=== PATIENT | female | born 1955 | race Caucasian/White ===

== ENCOUNTER 2019-05-18 07:30 | Emergency (ER) | payer MEDICARE, MEDICAID ==
--- NOTE | 2019-05-18 07:41 | ED ---
Abdominal Pain/Female - HPI Summary HPI Summary: Pt. is a 64 y.o female who presents to the ER for right flank pain that started acutely this morning. Patient states pain is intermittent without modifying factors. Denies fever, cough, chest pain, shortness of breath, dysuria, hematuria, vomiting, diarrhea. Past medical history of obesity, diabetes, hypertension, hypothyroidism. Symptoms are moderate in severity. No current modifying factors. Patient denies fall or injury. - History of Current Complaint Chief Complaint: EDFlankPain Stated Complaint: RIGHT ABD PAIN Time Seen by Provider: 05/18/19 07:38 Hx Obtained From: Patient Pain Intensity: 4 Allergies/Adverse Reactions: Allergies Allergy/AdvReac Type Severity Reaction Status Date / Time No Known Allergies Allergy Verified 05/18/19 07:36 Home Medications: Home Medications Acetaminophen [Arthritis Pain Relief] 1,300 mg PO BID 05/18/19 [History Confirmed 05/18/19] Indomethacin CAP* [Indocin CAP*] 50 mg PO TID PRN 05/18/19 [History Confirmed ] Levothyroxine TAB* [Synthroid TAB*] 75 mcg PO DAILY 05/18/19 [History Confirmed 05/18/19] Triamterene/HCTZ 37.5-25 MG* [Dyazide CAP*] 1 cap PO DAILY 05/18/19 [History Confirmed 05/18/19] glipiZIDE TAB* [Glucotrol TAB*] 5 mg PO QAM 05/18/19 [History Confirmed 05/18/19 ] metFORMIN* [Glucophage 1000 MG TAB *] 1,000 mg PO BID 05/18/19 [History Confirmed 05/18/19] PMH/Surg Hx/FS Hx/Imm Hx Previously Healthy: Yes Infectious Disease History: No Infectious Disease History: Denies: Traveled Outside the [place] in Last 30 Days - Family History Known Family History: Positive: Non-Contributory - Social History Occupation: Unemployed Lives: With Family Review of Systems Constitutional: Negative Negative: Fever, Chills Cardiovascular: Negative Negative: Palpitations, Chest Pain Respiratory: Negative Negative: Shortness Of Breath, Cough Positive: Abdominal Pain. Negative: Vomiting, Diarrhea Genitourinary: Negative Negative: dysuria, hematuria Skin: Negative Negative: Rash Neurological/Mental Status: Negative All Other Systems Reviewed And Are Negative: Yes Physical Exam Triage Information Reviewed: Yes Vital Signs On Initial Exam: Initial Vitals Temp Pulse Resp BP Pulse Ox 98.0 F 102 19 149/86 97 05/18/19 07:31 05/18/19 07:31 05/18/19 07:31 05/18/19 07:31 05/18/19 07:31 Vital Signs Reviewed: Yes Appearance: Positive: Well-Appearing - Patient sitting in bed in no acute distress. Skin: Positive: Warm, Dry Head/Face: Positive: Normal Head/Face Inspection Eyes: Positive: Normal, EOMI Neck: Positive: Supple Respiratory/Lung Sounds: Positive: Clear to Auscultation, Breath Sounds Present Cardiovascular: Positive: Normal, RRR Abdomen Description: Positive: Other: - Obese. Abdomen is soft with tenderness to the right lower quadrant and right upper quadrant. No CVA tenderness. Neurological: Positive: Normal, CN Intact II-III Psychiatric: Positive: Affect/Mood Appropriate Procedures - Sedation Patient Received Moderate/Deep Sedation with Procedure: No Diagnostics - Vital Signs Vital Signs Temp Pulse Resp BP Pulse Ox 05/18/19 07:31 98.0 F 102 19 149/86 97 - Laboratory Result Diagrams: 05/18/19 07:57 05/18/19 07:57 Lab Statement: Any lab studies that have been ordered have been reviewed, and results considered in the medical decision making process. Abdominal Pain Fem Course/Dx - Course Course Of Treatment: Patient with acute onset right flank/abd. pain. She is afebrile. Mildly tachycardic. Denies pain medication and pain is minimal at this point. IV fluids started, labs and CT scan ordered. ECG done at 0756 shows a sinus tachycardia of 102 bpm, normal axis, LVH, no STEMI. Left shoulder leukocytosis of 14,000, hyperglycemia mild hyperglycemia were, minimally elevated CRP. Urinalysis negative for infection. CT scan shows large amount of stool without acute findings per radiology. Chest x-ray ordered given leukocytosis and is negative for acute findings per radiology. Unclear of pain leukocytosis etiology. Suspect pain secondary to constipation. On reexamination patient is resting comfortably and is well appearing. Magnesium citrate prescribed. Increase fluids and fiber in diet. Will follow with PCP in 2-3 days if symptoms persist and return to the ER symptoms change or worsen. Patient understands and agrees with plan. - Diagnoses Differential Diagnosis: Positive: Appendicitis, Bowel Obstruction, Constipation , Diverticulitis, Hepatitis, Pneumonia, Renal Colic, Urinary Tract Infection Provider Diagnoses: Abdominal pain, Constipation, Leukocytosis Discharge ED - Sign-Out/Discharge Documenting (check all that apply): Patient Departure - Discharge Plan Condition: Good Disposition: HOME Patient Education Materials: Constipation (ED), Acute Abdominal Pain (ED), Leukocytosis (ED) Referrals: Yusuf Au MD [Primary Care Provider] - Additional Instructions: Follow up with PCP in 2-3 days if symptoms persist Take mag citrate as directed when you return home Increase fluids and fiber in diet Return to ER for fever, increased pain, vomiting or if concerned - Billing Disposition and Condition Condition: GOOD Disposition: Home
[2019-05-18] MEDS ORDERED: NS 0.9% 1000 ML** 1,000 ML IV ONE (07:50)
[2019-05-18 08:11] LABS: ABS Basophils 0.1 10^3/ul (0-0.2); ABS Eosinophils 0.3 10^3/ul (0-0.6); ABS Lymphocytes 1.9 10^3/ul (1.0-4.8); ABS Neutrophils 11.3 10^3/ul (1.5-7.7); Eosinophil % 2.2 %; Hematocrit 41 % (35-47); Hemoglobin 14.3 g/dL (12.0-16.0); Lymphocyte % 12.8 %; Mean Corpuscular HGB Conc 35 g/dL (31-36); Mean Corpuscular Hemoglobin 31 pg (27-31); Mean Corpuscular Volume 90 fL (80-97); Mean Platelet Volume 8.1 fL (7.4-10.4); Platelet Count 204 10^3/uL (150-450); Red Blood Count 4.58 10^6 /uL (3.70-4.87); Red Cell Distribution Width 13 % (10-15); White Blood Count 14.6 10^3/uL (3.5-10.8)
[2019-05-18 08:24] LABS: Albumin 4.1 g/dL (3.2-5.2); Albumin/Globulin Ratio 0.9 (1-3); BUN/Creatinine Ratio 21.5 (8-20); C Reactive Protein 9.71 mg/L (<8.01); Calcium 9.9 mg/dL (8.6-10.3); EGFR African American 88.1 (>60); EGFR Non-African American 72.8 (>60); Globulin 4.8 g/dL (2-4); Potassium 3.8 mmol/L (3.5-5.0); Total Bilirubin 0.9 mg/dL (0.2-1.0); Total Protein 8.9 g/dL (6.4-8.9)
[2019-05-18 08:26] LABS: Troponin I 0.01 ng/mL (<0.03)
[2019-05-18 08:32] LABS: Urine Appearance Clear; Urine Bilirubin Negative (Negative); Urine Blood Negative (Negative); Urine Color Yellow; Urine Glucose Negative (Negative); Urine Ketones Negative (Negative); Urine Nitrite Negative (Negative); Urine Protein 1+(30 mg/dL) (Negative); Urine Specific Gravity 1.019 (1.010-1.030); Urine Urobilinogen Negative (Negative)
[2019-05-18 08:36] LABS: Urine Bacteria Absent (Absent); Urine Red Blood Cell Trace(0-2/hpf) (Absent); Urine Squamous Epithelial Cell Present (Absent); Urine White Blood Cell Trace(0-5/hpf) (Absent)
[2019-05-18] MEDS ORDERED: Magnesium CITRATE* 300 ML BTL PO ONE (09:58)
[2019-05-18 10:21] VITALS: BP 126/77
== END 2019-05-18 10:21 | disposition home or self-care (01) ==
LOC: ED 07:30
DX: R10.84 Generalized abdominal pain (principal); D72.829 Elevated white blood cell count, unspecified; K59.00 Constipation, unspecified; E66.9 Obesity, unspecified; E11.9 Type 2 diabetes mellitus without complications; I10 Essential (primary) hypertension; E03.9 Hypothyroidism, unspecified; Z79.890 Hormone replacement therapy; Z79.899 Other long term (current) drug therapy
CPT/HCPCS: 36415; 71045; 74176; 80053; 81003; 81015; 84484; 85025; 86140; 87086; 93005; 96360; 96361; 99283; A9270-GY

== ENCOUNTER 2024-02-26 06:42 | Observation (INO) ==
[~2024-02-26 06:42] MED LIST: Lidocaine 1% w EPI 1:100,000 MDV 50 ML VIAL ONE; Metoclopramide 5 MG/ML VIAL (10 mg) IV PRN; NS 0.45% 1000 ml BAG 1,000 ML IV SCH; Naloxone 0.4 mg VIAL 0.4 mg/ml 1 ml VIAL IV PRN; Ondansetron 4 mg VIAL 2 MG/ML 2 ml VIAL IV PRN; fentaNYL 100 mcg/2 ml 50 MCG/ML VIAL IV PRN
[2024-02-26] MEDS: Scopolamine 1 mg/72hr PATCH TRANSDERM ONE (07:00)
[2024-02-26] MEDS ORDERED: Famotidine IV 10 MG/ML 2 ml VIAL (20 mg) ONE (07:01)
[2024-02-26] MEDS: Buffered Lidocaine 1% SYRIN 1 ml INTRADERM ONE (07:21)
[2024-02-26] MEDS: Acetaminophen IV 1 GM/100ML 1,000 MG/100 ML BAG IV ONE (07:21)
[2024-02-26] MEDS: Lactated Ringers 1000 ml BAG 1,000 ML IV SCH ×3 (07:22→21:27)
[2024-02-26] MEDS: Famotidine IV 10 MG/ML 2 ml VIAL (20 mg) IV ONE (07:22)
[2024-02-26 07:24] LABS: Rapid COVID-19 Molecular Undetected (Undetected)
[2024-02-26] MEDS ORDERED: fentaNYL 250 mcg/5 ml 50 MCG/ML 5 ml VIAL (250 MCG) ONE ×2 (08:14→09:27)
[2024-02-26] MEDS ORDERED: HYDROmorphone 0.5 MG/0.5 ML SYRINGE ONE ×2 (08:14→12:40)
[2024-02-26] MEDS ORDERED: Propofol 10 MG/ML 20 ML BTL ONE (08:16)
[2024-02-26] MEDS ORDERED: Succinylcholine 200 mg VIAL 20 mg/ml 10 ml VIAL (200 mg) ONE (08:17)
[2024-02-26] MEDS ORDERED: Ondansetron 4 mg VIAL 2 MG/ML 2 ml VIAL ONE ×2 (08:18→09:50)
[2024-02-26] MEDS ORDERED: Glycopyrrolate IV 0.2 MG/ML 1 ML VIAL ONE (08:18)
[2024-02-26] MEDS ORDERED: ceFAZolin VIAL VIAL ONE (11:38)
[2024-02-26] MEDS ORDERED: Sterile Water for Inj 10 ML ONE (11:38)
[2024-02-26] MEDS ORDERED: Esmolol 10 MG/ML 10 ML (100 mg) IV ONE (13:32)
[2024-02-26] MEDS ORDERED: Morphine 2 MG/ML SYRINGE IV PRN (16:13)
[2024-02-26] MEDS ORDERED: Dextrose 50% Syringe 50 ml 25 GM/50 ML SYRINGE IV PUSH PRN (18:39)
[2024-02-26] MEDS: Morphine 2 MG/ML SYRINGE IV PRN (19:42)
[2024-02-26] MEDS: Ondansetron 4 mg VIAL 2 MG/ML 2 ml VIAL IV PRN (19:43)
[2024-02-26] MEDS: Calcium Citrate 200 mg TAB PO SCH (21:28)
[2024-02-27 05:44] LABS: ABS Lymphocytes 0.5 10^3/uL (1.0-4.8); ABS Monocytes 0.9 10^3/uL (0.0-0.9); ABS Neutrophils 6.5 10^3/uL (1.5-7.6); Eosinophil % 0.2 %; Hematocrit 29.7 % (35-45); Lymphocyte % 6.6 %; Mean Corpuscular Hemoglobin 32.7 pg (27-33); Mean Corpuscular Hgb Conc 33.6 g/dL (31-36); Mean Corpuscular Volume 97.3 fL (80-97); Platelet Count 139 10^3/uL (150-450); Red Blood Count 3.05 10^6/uL (3.63-4.92); White Blood Count 7.9 10^3/uL (3.8-11.8)
[2024-02-27 06:14] LABS: Albumin 3.6 g/dL (3.5-5.7); Albumin/Globulin Ratio 1.1 (1-3); Calcium 8.6 mg/dL (8.6-10.3); Creatinine, Serum 1.11 mg/dL (0.51-0.95); Globulin 3.4 g/dL (2-4); Magnesium 1.4 mg/dL (1.9-2.7); Potassium 4.2 mmol/L (3.5-5.0); Total Bilirubin 0.7 mg/dL (0.2-1.0); eGFR CKD-EPI 53.5 (>60)
[2024-02-27] MEDS: Magnesium Sulfate 2 gm BAG 2 GM/50 ML BAG IVPB ONE (08:36)
[2024-02-27] MEDS ORDERED: Aspirin EC 81 mg TAB.EC (enteric coated) PO SCH (09:00)
[2024-02-27] MEDS: Empagliflozin 25 MG TAB PO SCH (09:18)
[2024-02-27] MEDS: Calcium Carb (TUMS) 500 mg CHEW TAB PO SCH (09:19)
[2024-02-27 09:48] VITALS: BP 134/71
[2024-02-27] MEDS: Magnesium Sulfate IV 1GM/100ML 1 GM/100 ML BAG IV ONE (10:19)
[2024-02-27] MEDS ORDERED: CMC:Letrozole 2.5 MG TAB (NF) PO SCH (17:00)
== END 2024-02-27 13:15 | disposition home or self-care (01) ==
LOC: SSU 06:42 → OR 06:42
PROVIDERS: ADMIT Student in an Organized Health Care Education/Training Program; ATTEND Otolaryngology

== ENCOUNTER 2024-02-27 19:55 | Observation (INO) ==
[2024-02-27] MEDS: Acetaminophen IV 1 GM/100ML 1,000 MG/100 ML BAG IV ONE (21:28)
[2024-02-27 21:36] LABS: ABS Lymphocytes 0.5 10^3/uL (1.0-4.8); ABS Monocytes 1.1 10^3/uL (0.0-0.9); ABS Neutrophils 8.6 10^3/uL (1.5-7.6); Eosinophil % 0.2 %; Hematocrit 30.6 % (35-45); Hemoglobin 10.4 g/dL (11.5-14.3); Lymphocyte % 4.8 %; Mean Corpuscular Hemoglobin 32.7 pg (27-33); Mean Corpuscular Hgb Conc 33.9 g/dL (31-36); Mean Corpuscular Volume 96.7 fL (80-97); Platelet Count 159 10^3/uL (150-450); Red Blood Count 3.17 10^6/uL (3.63-4.92); Red Cell Distribution Width 14.2 % (12-17); White Blood Count 10.2 10^3/uL (3.8-11.8)
[2024-02-27 21:47] LABS: Activated Partial Thrombo Time 26.2 seconds (26.0-38.0); INR 1.28 (0.85-1.14)
[2024-02-27] MEDS: Lactated Ringers 1000 ml BAG 1,000 ML IV ONE ×2 (21:49→23:43)
[2024-02-27 22:12] LABS: Albumin 4.1 g/dL (3.5-5.7); Albumin/Globulin Ratio 1.1 (1-3); C Reactive Protein 156.63 mg/L (<8.01); Calcium 9.7 mg/dL (8.6-10.3); Creatinine, Serum 1.46 mg/dL (0.51-0.95); Globulin 3.9 g/dL (2-4); Potassium 4.4 mmol/L (3.5-5.0); Total Bilirubin 0.8 mg/dL (0.2-1.0); eGFR CKD-EPI 38.5 (>60)
[2024-02-27] MEDS: Iodixanol 320 (CONTRAST) 100 ML SDV IV ONE (22:59)
[2024-02-27 23:06] LABS: High Sensitivity Troponin 1 Hr 35 pg/mL (<15)
[2024-02-27] MEDS: Cefepime 2 GM in Dextrose 2 GM/50 ML BAG IV ONE (23:08)
[2024-02-28 01:35] LABS: Urine Appearance Clear; Urine Bacteria Absent /HPF (Absent); Urine Bilirubin Negative (Negative); Urine Blood Trace (Negative); Urine Color Light-Yellow; Urine Glucose 4+ (>=1000 mg/dL) (Negative); Urine Ketones Negative (Negative); Urine Nitrite Negative (Negative); Urine Protein Negative (Negative); Urine Red Blood Cell Trace(0-2/hpf) /HPF (0-Trace); Urine Specific Gravity 1.022 (1.002-1.030); Urine Squamous Epithelial Cell Present /HPF (Absent); Urine Urobilinogen Negative (Negative); Urine White Blood Cell 1+(6-10/hpf) /HPF (0-Trace); Urine pH 5.5 (5.0-8.0)
[2024-02-28] MEDS ORDERED: Dextrose 50% Syringe 50 ml 25 GM/50 ML SYRINGE IV PUSH PRN (04:48)
[2024-02-28] MEDS: Azithromycin 500 mg/250 ml NS 500 MG/250 ML BAG IVPB SCH (05:18)
[2024-02-28] MEDS: Enoxaparin 40 MG/0.4 ML SYR SUBCUT SCH (05:22)
[2024-02-28 06:30] LABS: ABS Eosinophils 0.1 10^3/uL (0.0-0.5); ABS Lymphocytes 0.5 10^3/uL (1.0-4.8); ABS Neutrophils 6.2 10^3/uL (1.5-7.6); ABS Nucleated RBC 0.01 10^3/ul; Eosinophil % 0.9 %; Hematocrit 28.1 % (35-45); Hemoglobin 9.6 g/dL (11.5-14.3); Lymphocyte % 6.4 %; Mean Corpuscular Hemoglobin 33.2 pg (27-33); Mean Corpuscular Hgb Conc 34.2 g/dL (31-36); Mean Corpuscular Volume 97.2 fL (80-97); Mean Platelet Volume 7.1 fL (7.5-11.2); Nucleated Red Blood Cells % 0.1 %/100WBC (0.0-0.8); Platelet Count 139 10^3/uL (150-450); Red Blood Count 2.89 10^6/uL (3.63-4.92); Red Cell Distribution Width 14.2 % (12-17); White Blood Count 7.7 10^3/uL (3.8-11.8)
[2024-02-28 07:19] LABS: Calcium 8.9 mg/dL (8.6-10.3); Creatinine, Serum 1.29 mg/dL (0.51-0.95); Magnesium 1.8 mg/dL (1.9-2.7); Phosphorus 3.3 mg/dL (2.5-5.0); Potassium 4.1 mmol/L (3.5-5.0); eGFR CKD-EPI 44.6 (>60)
[2024-02-28] MEDS: cefTRIAXone 1 gm/50 mL D5W 1 GM/50 ML BAG IV SCH (07:51)
[2024-02-28] MEDS: Empagliflozin 25 MG TAB PO SCH (07:51)
[2024-02-28] MEDS: Aspirin EC 81 mg TAB.EC (enteric coated) PO SCH (07:51)
[2024-02-28] MEDS ORDERED: cefTRIAXone 2 gm/50 mL D5W 2 GM/50 ML BAG IV SCH (09:00)
[2024-02-28] MEDS: Calcium Carb (TUMS) 500 mg CHEW TAB PO SCH ×2 (11:03→15:43)
[2024-02-28] MEDS: Letrozole 2.5 MG TAB (NF) PO SCH (16:50)
[2024-02-28] MEDS ORDERED: Calcium Carbonate LIQ 1,250 mg/5 ml UDC PO SCH (21:00)
[2024-02-29] MEDS: Azithromycin 500 mg/250 ml NS 500 MG/250 ML BAG IVPB SCH (05:26)
[2024-02-29 08:26] LABS: ABS Eosinophils 0.1 10^3/uL (0.0-0.5); ABS Lymphocytes 0.6 10^3/uL (1.0-4.8); ABS Monocytes 0.7 10^3/uL (0.0-0.9); ABS Neutrophils 4.3 10^3/uL (1.5-7.6); Eosinophil % 1.9 %; Hematocrit 26.3 % (35-45); Hemoglobin 9.1 g/dL (11.5-14.3); Lymphocyte % 10.9 %; Mean Corpuscular Hemoglobin 33.3 pg (27-33); Mean Corpuscular Hgb Conc 34.5 g/dL (31-36); Mean Corpuscular Volume 96.6 fL (80-97); Platelet Count 127 10^3/uL (150-450); Red Blood Count 2.72 10^6/uL (3.63-4.92); Red Cell Distribution Width 14.1 % (12-17); White Blood Count 5.7 10^3/uL (3.8-11.8)
[2024-02-29] MEDS: cefTRIAXone ADVAN VIAL 1 GM in NS 0.9% 50 ML 50 ML IV SCH (08:53)
[2024-02-29 09:00] LABS: Calcium 9.5 mg/dL (8.6-10.3); Creatinine, Serum 1.11 mg/dL (0.51-0.95); Magnesium 1.6 mg/dL (1.9-2.7); eGFR CKD-EPI 53.5 (>60)
[2024-02-29 09:27] VITALS: BP 130/67
[2024-02-29] MEDS: Magnesium Sulfate 2 gm BAG 2 GM/50 ML BAG IVPB ONE (09:43)
== END 2024-02-29 13:40 | disposition home or self-care (01) ==
LOC: ED 19:55 → EDHOLD 19:55 → SUATTDRO 02-28 01:46 → MED 02-28 14:12
PROVIDERS: ADMIT Student in an Organized Health Care Education/Training Program; ATTEND Student in an Organized Health Care Education/Training Program